=== PATIENT | female | born 1995 | race Hispanic/Latino ===

== ENCOUNTER 2017-07-27 15:06 | Emergency (ER) | payer OTHER, SELFPAY ==
--- NOTE | 2017-07-27 16:05 | RAD ---
PORTABLE CHEST 1 VIEW: DATE: 07/27/17. TIME: 3:22 p.m. HISTORY: Cough, chest pain. FINDINGS: The heart size is normal. The lungs are expanded without focal areas of consolidation, pneumothorax , or pleural effusions. IMPRESSION: No acute process. POS: [facility]
[2017-07-27] MEDS ORDERED: Ketorolac Tromethamine 60 MG/2 ML VIAL ONE (16:33)
== END 2017-07-27 17:26 | disposition home or self-care (01) ==
LOC: ERS 15:06
DX: R09.1 Pleurisy (principal); G43.909 Migraine, unspecified, not intractable, without status migrainosus
CPT/HCPCS: 36415; 71010; 84703; 85379; 93005; 96372; J1885